=== PATIENT | male | born 1950 | race Caucasian/White ===

== ENCOUNTER 2022-02-12 17:25 | Emergency (ER) | payer OTHER, MEDICARE ==
[~2022-02-12] VITALS: Ht 188 cm; Wt 90.9 kg
[~2022-02-12 17:25] MED LIST: ASPIRIN 81M81 MG/TA2 PO; FOLIC ACID 11 MG/TA1 PO; LEVAQUIN 5500 MG/TA1 PO; LIPITOR 80MG80 MG PO; LYRICA 100MG C100 M1 PO; MICARDIS80 MG PO; OXY IR5 MG PO; STELARA90 MG/ML SQ; TOPROL XL 25MG25 MG PO; VITAMIN B12 781 TAB PO
[2022-02-12 17:42] VITALS: TEMP 98.6
[2022-02-12 18:42] LABS: HEMOGLOBIN 10.1 g/dl (13.5-18.0); MEAN CELL VOLUME 88 fl (80.0-100.0); MEAN CORPUSCULAR HEMOGLOBIN 30 pg (27-31); MEAN CORPUSCULAR HGB CONC 34 g/dl (33.0-37.0); MEAN PLATELET VOLUME 11.8 fl (7.4-10.4); PLATELET COUNT 129 K/mm3 (130-400); RED BLOOD COUNT 3.37 M/mm3 (4.20-5.60); REDCELL DISTRIBUTION WIDTH-CV 16.7 % (11.5-14.5)
[2022-02-12 18:47] LABS: HEMATOCRIT 29.8 % (42.0-52.0)
[2022-02-12 18:59] LABS: ALBUMIN 3.2 gm/dL (3.4-4.8); BILIRUBIN,TOTAL 0.5 mg/dL (0.2-1.2); CALCIUM 8.9 mg/dL (8.4-10.2); CREATININE, serum 0.89 mg/dL (0.72-1.25); POTASSIUM 3.8 mmol/L (3.5-4.5); TOTAL PROTEIN 6.5 gm/dL (6.2-8.1)
[2022-02-12 19:41] LABS: BAND 7 % (0-10); LYMPHOCYTE 32 % (20.0-51.0); NEUTROPHILS 55 % (42.0-75.2)
[2022-02-12 19:42] LABS: ANISOCYTOSIS 2+; OVALOCYTES 1+; PLATELET ESTIMATE NORMAL (NORMAL)
[2022-02-12 21:47] VITALS: BP 111/79; PULSE 98
== END 2022-02-12 22:04 | disposition home or self-care (01) ==
LOC: COL.ER 17:25
PROVIDERS: Physician Assistant
DX: S06.9X9A Unspecified intracranial injury with loss of consciousness of unspecified duration, initial encounter (principal); M25.552 Pain in left hip; C34.90 Malignant neoplasm of unspecified part of unspecified bronchus or lung; F17.200 Nicotine dependence, unspecified, uncomplicated; Y92.009 Unspecified place in unspecified non-institutional (private) residence as the place of occurrence of the external cause; W19.XXXA Unspecified fall, initial encounter
CPT/HCPCS: J3010; J7030

== ENCOUNTER → 2022-08-22 | Outpatient (CLI) | payer OTHER, MEDICARE ==
[~2022-08-22] VITALS: Ht 188 cm; Wt 83.4 kg
[~2022-08-22] MED LIST changes: +ARICEPT ODT10 MG PO; +FLEXERIL 1010 MG/TAB PO; +OMNICEF 300MG300 MG PO; +TAMIFLU 75MG75 MG PO; +TEMOVATE0.05% TP
[2022-08-22 16:16] VITALS: BP 92/63; PULSE 75; TEMP 98
[2022-08-22 16:16] LABS: BASO % 0.7 % (0.0-2.0); EOS # 0.2 K/mm3 (0.0-0.7); EOS % 3.2 % (0.0-4.0); GRAN # 4.1 K/mm3 (1.4-6.5); GRAN % 73.8 % (42.2-75.2); HEMOGLOBIN 11.3 g/dl (13.5-18.0); LYMPH # 0.5 K/mm3 (1.2-3.4); LYMPH % 9.7 % (20.0-51.0); MEAN CELL VOLUME 87 fl (80.0-100.0); MEAN CORPUSCULAR HEMOGLOBIN 29 pg (27-31); MEAN CORPUSCULAR HGB CONC 33 g/dl (33.0-37.0); MONO # 0.7 K/mm3 (0.1-0.6); MONO % 12.2 % (1.7-9.3); PLATELET COUNT 147 K/mm3 (130-400); RED BLOOD COUNT 3.89 M/mm3 (4.20-5.60); REDCELL DISTRIBUTION WIDTH-CV 16.6 % (11.5-14.5)
[2022-08-22 16:17] LABS: HEMATOCRIT 33.9 % (42.0-52.0)
[2022-08-22 16:46] LABS: ALBUMIN 3.4 gm/dL (3.4-4.8); BILIRUBIN,TOTAL 0.4 mg/dL (0.2-1.2); CALCIUM 9.6 mg/dL (8.4-10.2); CREATININE, serum 1.03 mg/dL (0.72-1.25); MAGNESIUM 1.7 mg/dL (1.6-2.6); POTASSIUM 4.4 mmol/L (3.5-4.5)
[2022-08-22 17:46] LABS: TSH w REFLEX 0.523 uIU/mL (0.350-4.940)
== END ==
LOC: EUO 08-16 16:00
PROVIDERS: Student in an Organized Health Care Education/Training Program
DX: Z00.00 Encounter for general adult medical examination without abnormal findings (principal); Z45.2 Encounter for adjustment and management of vascular access device; C34.92 Malignant neoplasm of unspecified part of left bronchus or lung
CPT/HCPCS: J1644

== ENCOUNTER → 2022-09-04 | Outpatient (CLI) | payer OTHER, MEDICARE | LOC: COL.RAD 13:20 | DX: I71.43 Infrarenal abdominal aortic aneurysm, without rupture (principal); I72.3 Aneurysm of iliac artery; K76.0 Fatty (change of) liver, not elsewhere classified; K80.20 Calculus of gallbladder without cholecystitis without obstruction; J90 Pleural effusion, not elsewhere classified; Z98.2 Presence of cerebrospinal fluid drainage device | CPT/HCPCS: Q9967 ==

== ENCOUNTER 2022-10-10 10:19 | Outpatient (CLI) | payer MEDICARE, OTHER ==
[2022-10-10] VITALS (9 sets, daily range): BP systolic 91–108; BP diastolic 61–92; PULSE 61–85; TEMP 97.6
[~2022-10-10] VITALS: Ht 188.1 cm; Wt 78.3 kg
[2022-10-10] MEDS ORDERED: CENTRUM SILVER1 TAB PO (11:23)
[2022-10-10] MEDS ORDERED: FENTANYL 12MCG TD (11:25)
[2022-10-10] MEDS ORDERED: MAGNESIUM500 MG PO (11:27)
[2022-10-10] MEDS ORDERED: DAZIDOX10 MG PO (11:31)
[2022-10-10] MEDS ORDERED: PREDNISONE20 MG PO (11:33)
--- NOTE | 2022-10-10 12:37 | NUR ---
PLEASE SEE MERGE FOR DOCUMENTATION OF INTERVENTIONS, VITAL SIGNS, AND MEDICATIONS GIVEN DURING THE PROCEDURE
--- NOTE | 2022-10-10 15:50 | NUR ---
Pt has rested comfortably following procedure. He wakes easily each time staff has entered room. Pt was assisted up to restroom. Gait steady with standby assistance. He states back pain is much improved following vertebroplasty. Bandaid site remains clean, dry and intact. Pt ate partial meal tray. No c/o nausea. Port flushed and deaccessed, bandaid over site. DC instructions reviewed with pt, he expresses understanding. These instructions were also reviewed with care provided Alpesh from [facility] where pt resides. Pt is assisted out to friend's vehicle for ride home.
== END 2022-10-10 15:50 | disposition home or self-care (01) ==
LOC: COL.CAR 10:19
DX: M48.56XA Collapsed vertebra, not elsewhere classified, lumbar region, initial encounter for fracture (principal); M54.9 Dorsalgia, unspecified; C34.92 Malignant neoplasm of unspecified part of left bronchus or lung; C77.3 Secondary and unspecified malignant neoplasm of axilla and upper limb lymph nodes; G62.9 Polyneuropathy, unspecified; R42 Dizziness and giddiness; F17.210 Nicotine dependence, cigarettes, uncomplicated
CPT/HCPCS: C1713; J1200; J1644; J2250; J3010; J7120

== ENCOUNTER 2022-10-11 14:12 | Emergency (ER) | payer MEDICARE, OTHER ==
[~2022-10-11] VITALS: Ht 188 cm; Wt 76.4 kg
[~2022-10-11 14:12] MED LIST changes: +CENTRUM SILVER1 TAB PO; +DAZIDOX10 MG PO; +FENTANYL 12MCG TD; +MAGNESIUM500 MG PO; +PREDNISONE20 MG PO
[2022-10-11 14:13] VITALS: TEMP 98.1
[2022-10-11 14:53] LABS: BASO % 0.1 % (0.0-2.0); GRAN # 6.5 K/mm3 (1.4-6.5); HEMOGLOBIN 11.8 g/dl (13.5-18.0); LYMPH # 0.4 K/mm3 (1.2-3.4); LYMPH % 4.7 % (20.0-51.0); MEAN CELL VOLUME 88 fl (80.0-100.0); MEAN CORPUSCULAR HEMOGLOBIN 30 pg (27-31); MEAN CORPUSCULAR HGB CONC 34 g/dl (33.0-37.0); MEAN PLATELET VOLUME 11.9 fl (7.4-10.4); MONO % 12.2 % (1.7-9.3); PLATELET COUNT 108 K/mm3 (130-400); RED BLOOD COUNT 3.95 M/mm3 (4.20-5.60); REDCELL DISTRIBUTION WIDTH-CV 14.5 % (11.5-14.5)
[2022-10-11 14:54] LABS: HEMATOCRIT 34.6 % (42.0-52.0)
[2022-10-11 15:15] LABS: ALBUMIN 2.9 gm/dL (3.4-4.8); BILIRUBIN,TOTAL 0.5 mg/dL (0.2-1.2); CALCIUM 9.7 mg/dL (8.4-10.2); CREATININE, serum 1.47 mg/dL (0.72-1.25); POTASSIUM 3.7 mmol/L (3.5-4.5); TOTAL PROTEIN 6.3 gm/dL (6.2-8.1)
[2022-10-11 15:21] LABS: TROPONIN-I 0.016 ng/mL (0.00-0.033)
[2022-10-11 15:48] VITALS: BP 97/69; PULSE 82
== END 2022-10-11 16:11 | disposition home or self-care (01) ==
LOC: COL.ER 14:12
PROVIDERS: Emergency Medicine
DX: M48.56XA Collapsed vertebra, not elsewhere classified, lumbar region, initial encounter for fracture (principal); N17.9 Acute kidney failure, unspecified; E86.0 Dehydration; D64.9 Anemia, unspecified; I95.9 Hypotension, unspecified; R94.4 Abnormal results of kidney function studies; R74.01 Elevation of levels of liver transaminase levels; Z98.890 Other specified postprocedural states
CPT/HCPCS: J1885; J7030

== ENCOUNTER 2022-10-22 07:32 | Emergency (ER) | payer MEDICARE, OTHER ==
[~2022-10-22] VITALS: Ht 185.4 cm; Wt 81.8 kg
[2022-10-22 07:36] VITALS: TEMP 97.5
[2022-10-22 08:16] LABS: BASO % 0.3 % (0.0-2.0); EOS % 0.1 % (0.0-4.0); GRAN # 6.8 K/mm3 (1.4-6.5); GRAN % 86.6 % (42.2-75.2); HEMOGLOBIN 10.5 g/dl (13.5-18.0); LYMPH # 0.3 K/mm3 (1.2-3.4); LYMPH % 3.7 % (20.0-51.0); MEAN CELL VOLUME 87 fl (80.0-100.0); MEAN CORPUSCULAR HEMOGLOBIN 30 pg (27-31); MEAN CORPUSCULAR HGB CONC 34 g/dl (33.0-37.0); MONO # 0.7 K/mm3 (0.1-0.6); MONO % 8.3 % (1.7-9.3); RED BLOOD COUNT 3.51 M/mm3 (4.20-5.60); REDCELL DISTRIBUTION WIDTH-CV 15.6 % (11.5-14.5)
[2022-10-22 08:18] LABS: HEMATOCRIT 30.6 % (42.0-52.0)
[2022-10-22 08:19] LABS: PLATELET COUNT 31 K/mm3 (130-400)
[2022-10-22 08:29] LABS: ALBUMIN 2.6 gm/dL (3.4-4.8); BILIRUBIN,TOTAL 1.5 mg/dL (0.2-1.2); CREATININE, serum 1.05 mg/dL (0.72-1.25); POTASSIUM 3.9 mmol/L (3.5-4.5)
[2022-10-22 08:35] LABS: COLLECTION METHOD CATHETER
[2022-10-22 09:30] LABS: AMORPHOUS CRYSTAL Present (NOT PRESENT); MUCOUS Present (NOT PRESENT); SQUAMOUS EPITHELIAL None Seen /hpf (0-10); URINE APPEARANCE Turbid (CLEAR/HAZY); URINE BACTERIA Rare /hpf (NONE SEEN); URINE COLOR Amber (YELLOW); URINE GLUCOSE Negative (NEGATIVE); URINE KETONE TRACE (NEGATIVE); URINE PROTEIN(semi-quant) 3+ (NEGATIVE); URINE RBC 0-2 /hpf (0-2)
[2022-10-22 09:31] LABS: URINE BLOOD 1+ (NEGATIVE); URINE NITRATE Negative (NEGATIVE)
--- NOTE | 2022-10-22 10:21 | NUR ---
[employer] Business Consultant met with Patient and dsughter at bedside in ER per RN request. PAtient's daughter reports to be DPOA, SW will verify DPOA status. Patient admitts from [facility]. Daughter reports to want Patient to return home with hospice services. SW contacted [facility] who reports to have contacted Babar with [facility]. Strap Maker states that she will coordinate non EMS transport for Patient. SW attempted to contact Babar at [facility] and left a voicemail. Discharge Plan: Home with Hospice.
[2022-10-22 11:08] VITALS: BP 114/71; PULSE 98
== END 2022-10-22 11:08 | disposition home or self-care (01) ==
LOC: COL.ER 07:32
PROVIDERS: Personal Emergency Response Attendant
DX: C34.92 Malignant neoplasm of unspecified part of left bronchus or lung (principal); C78.7 Secondary malignant neoplasm of liver and intrahepatic bile duct; R41.82 Altered mental status, unspecified; D69.6 Thrombocytopenia, unspecified
CPT/HCPCS: J7030